=== PATIENT | female | born 1945 | race Caucasian/White ===

== ENCOUNTER 2024-11-26 10:23 | Outpatient (CLI) | payer OTHER | END 2024-11-26 10:24 | disposition home or self-care (01) | LOC: BICMAMMO 10:23 | PROVIDERS: ATTEND Internal Medicine | DX: Z12.31 Encounter for screening mammogram for malignant neoplasm of breast (principal); Z78.0 Asymptomatic menopausal state; M85.851 Other specified disorders of bone density and structure, right thigh; M85.852 Other specified disorders of bone density and structure, left thigh; N64.89 Other specified disorders of breast | CPT/HCPCS: 77063; 77067; 77080 ==